=== PATIENT | male | born 1960 | race Caucasian/White ===

== ENCOUNTER → 2019-10-16 | Outpatient (CLI) | payer OTHER ==
--- NOTE | 2019-10-16 14:46 | RAD ---
EXAM: KNEE LEFT 2V 10/16/2019 12:00 AM CLINICAL INDICATION:Left knee pain COMPARISON:None TECHNIQUE:AP and lateral views of the left knee FINDINGS:There is chronic-appearing fragmentation of the anterior tibial plateau and tibial tubercle, likely sequela of old injury. This results in a 1.5 x 2.1 cm chronic fragment mildly displaced superiorly along the anterior tibial plateau. There is a separate 6 x 6 mm intra-articular osseous fragment anterior to the intercondylar notch. No acute fracture. Joint spaces are maintained. There are tiny tricompartmental osteophytes. No joint effusion. Moderate prepatellar soft tissue swelling. IMPRESSION:Chronic-appearing fragmentation of the anterior tibial plateau and tibial tubercle, likely sequela of old fracture. Associated 6 mm intra-articular body. Moderate overlying infrapatellar soft tissue swelling, likely bursitis. Electronically signed by: Ana Bernabe MD (10/16/2019 2:43 PM) [id number]
== END ==
LOC: PMG 08:45
PROVIDERS: ATTEND Physician Assistant
DX: M25.762 Osteophyte, left knee (principal); M25.462 Effusion, left knee
CPT/HCPCS: 73560